=== PATIENT | female | born 1945 | race Caucasian/White ===

== ENCOUNTER → 2025-01-11 12:20 | Outpatient (REF) | payer MEDICARE, SELFPAY | LOC: MRI 3T 12:20 | PROVIDERS: ATTENDING PHYSICIAN Family Medicine | DX: K86.9 Disease of pancreas, unspecified (principal) | CPT/HCPCS: 74181 ==

== ENCOUNTER → 2025-08-05 09:55 | Outpatient (REF) | payer MEDICARE, SELFPAY | LOC: MRI 3T 09:55 | PROVIDERS: ATTENDING PHYSICIAN Family Medicine | DX: K86.2 Cyst of pancreas (principal) | CPT/HCPCS: 74181 ==